=== PATIENT | male | born 1990 | race Caucasian/White ===

== ENCOUNTER 2018-09-10 16:47 | Emergency (ER) | payer OTHER ==
[~2018-09-10] VITALS: Ht 182.9 cm; Wt 84.1 kg
[2018-09-10] MEDS ORDERED: MIRT30TA3 PO (16:53)
[2018-09-10] MEDS ORDERED: XANA0.5T PO (17:28)
[2018-09-10 17:52] VITALS: BP 138/78
== END 2018-09-10 17:54 | disposition home or self-care (01) ==
LOC: M ED 16:47
DX: F43.0 Acute stress reaction (principal); F41.1 Generalized anxiety disorder; F33.9 Major depressive disorder, recurrent, unspecified; Z79.899 Other long term (current) drug therapy; Z88.8 Allergy status to other drugs, medicaments and biological substances; F17.210 Nicotine dependence, cigarettes, uncomplicated

== ENCOUNTER 2018-09-21 16:33 | Inpatient (IN) | payer OTHER ==
[~2018-09-21] VITALS: Ht 182.9 cm; Wt 82.1 kg
[~2018-09-21 16:33] MED LIST: MIRT30TA3 PO; XANA0.5T PO
[2018-09-21 17:31] LABS: HEMATOCRIT 47.6 % (42.0-52.0); HEMOGLOBIN 16.1 g/dl (13.5-17.5); MEAN CORPUSCULAR HEMOGLOBIN 32.5 pg (27.0-33.0); MEAN CORPUSCULAR HGB CONC 33.8 g/dl (32.0-36.5); MEAN CORPUSCULAR VOLUME 96.2 fl (80.0-96.0); PLATELET COUNT, AUTOMATED 290 10^3/uL (150-450); RED BLOOD COUNT 4.95 10^6/uL (4.30-6.10); WHITE BLOOD COUNT 11.7 10^3/uL (4.0-10.0)
[2018-09-21 17:57] LABS: AMPHETAMINES LEVEL URINE NEGATIVE (NEGATIVE); BARBITURATES URINE NEGATIVE (NEGATIVE); BENZODIAZEPINES URINE NEGATIVE (NEGATIVE); CANNABINOIDS URINE POSITIVE (NEGATIVE); COCAINE METABOLITE URINE NEGATIVE (NEGATIVE); METHADONE URINE NEGATIVE (NEGATIVE); OPIATES URINE NEGATIVE (NEGATIVE); PHENCYCLIDINE URINE NEGATIVE (NEGATIVE)
[2018-09-21 18:07] LABS: ACETAMINOPHEN LEVEL < 2.0 UG/ML (10.0-30.0); ALBUMIN 4.4 GM/DL (3.2-5.2); ALT/SGPT 27 U/L (12-78); BILIRUBIN,DIRECT 0.1 MG/DL (0.0-0.2); BILIRUBIN,TOTAL 0.3 MG/DL (0.2-1.0); BLOOD UREA NITROGEN 10 MG/DL (7-18); CALCIUM LEVEL 9.4 MG/DL (8.5-10.1); CARBON DIOXIDE LEVEL 28 MEQ/L (21-32); CHLORIDE LEVEL 104 MEQ/L (98-107); CREATININE FOR GFR 1.01 MG/DL (0.70-1.30); GLOMERULAR FILTRATION RATE > 60.0 (>60); GLUCOSE, FASTING 79 MG/DL (70-100); POTASSIUM SERUM 4.2 MEQ/L (3.5-5.1); SALICYLATE LEVEL 1.8 MG/DL (5.0-30.0); SODIUM LEVEL 140 MEQ/L (136-145); TOTAL PROTEIN 7.3 GM/DL (6.4-8.2)
[2018-09-21 18:08] LABS: ETHYL ALCOHOL (ETHANOL) < 0.003 % (0.000-0.010)
[2018-09-21] MEDS ORDERED: BENA25CA4 PO (19:48)
[2018-09-21] MEDS ORDERED: XANA0.5T PO (19:48)
[2018-09-21] MEDS ORDERED: EXCETAB80 PO (19:48)
[2018-09-21] MEDS ORDERED: traZODone 50 MG TAB PO PRN (20:00)
[2018-09-21] MEDS ORDERED: MAALOX 30 ML SUSP *UDC PO PRN (20:00)
[2018-09-21] MEDS ORDERED: MOM 30ML SUSPENSION UDC PO PRN (20:00)
[2018-09-21 20:33] VITALS: BP 146/87
[2018-09-21] MEDS: LORazepam 1 MG TAB PO PRN (22:01)
[2018-09-22 06:58] VITALS: BP 128/66
[2018-09-22] MEDS: LORazepam 1 MG TAB PO PRN (08:08)
[2018-09-22] MEDS: NICOTINE 21MG/24HR 1 EA TRANSDERMAL TD SCH (08:08)
--- NOTE | 2018-09-22 09:25 | HPEPDOC ---
[facility] Medical History & Physical Date of Admission Sep 21, 2018 History and Physical PCP: Dr Husain ATTENDING: Dr. Ishmael Pringle HPI: 28yoM admitted to [facility] for bipolar disorder, being medically examined today. No acute medical complaints today. Denies any fevers, chills, weakness, fatigue, CASTANEDA, CP, SOB, cough, palpitations, abdominal pain, N/V/D or changes in bowel or bladder habits. PMHx: Anxiety Depression Bipolar disorder History of SI Migraine headache PSHX: Left orchiectomy/left testicular torsion SOCHX: Resides in: [facility], recently moved from [place] Marital Status: Single Kids: None Employment: Unemployed Tobacco use: One pack per day ETOH: A few drinks per month Illicit Drugs: Marijuana in the past IV Drug Use: Denies Tattoos done unprofessionally: Denies FAMHX: Mother: Alive, depression Father: Alive, anxiety, diabetes, dyslipidemia Siblings: 2 brothers, one sister Alive, well Children: None Unexpected deaths due to medical reasons: None. ROS: As noted in HPI, otherwise 11pt ROS of systems reviewed and unremarkable. PE: GEN: 28 yo M, appears stated age. Well-nourished, well developed. No acute distress. Alert and oriented x 3. Pleasant, interactive. HEENT: Normocephalic, atraumatic. Pupils are equal, round, and reactive to light. Extraocular movements are intact. No nystagmus appreciated. Sclera are nonicteric. Conjunctiva without injection. Nose midline. Nasal turbinates without bogginess. EACs both patent BL. TMs both visualized and chau with good cone of light, no bulging or erythema. No facial asymmetry. Moist mucous membranes. Dentition fair. Pharynx pink and moist, no cobblestoning. Neck supple, trachea midline. No lymphadenopathy or thyromegaly appreciated. CHEST: Regular rate and rhythm, +S1, +S2 LUNGS: Clear to auscultation bilaterally. No wheezes, rales, or rhonchi. Breathing appears symmetric and easy. Patient is speaking in full sentences. No accessory muscle use. ABD: Round, soft, non-tender, non-distended. +Bowel sounds throughout. No rebou nd or guarding. No costovertebral angle tenderness. EXT: Pulses 2+ bilaterally dorsalis pedis and radial. No lower extremity edema appreciated. SKIN: [place], dry, warm. Capillary refill <2sec. No rashes. NEURO: Alert and oriented x 3. Cranial nerves III-XII are intact. No focal deficits appreciated. EKG: Pending A&P: 28yoM admitted to [facility] for bipolar disorder 1. Psych. Plan per Psychiatry. Obtain baseline EKG to assure the safety of psychiatric medications as they can prolong the QT interval. 2. Nicotine dependence. Patch available. 3. Migraine CASTANEDA. Continue Tylenol as needed. 4. Follow up with PCP on discharge. 5. Staff member Dioni present throughout exam. Vital Signs Vital Signs Date Time Temp Pulse Resp B/P (MAP) Pulse Ox O2 Delivery O2 Flow Rate FiO2 09/22/18 06:58 98.1 59 16 128/66 (86) 09/21/18 20:33 97 Room Air Laboratory Data Labs 24H Laboratory Tests 2 09/21/18 17:12: Nucleated Red Blood Cells % (auto) 0.0, Anion Gap 8, Glomerular Filtration Rate > 60.0, Calcium Level 9.4, Aspartate Amino Transf (AST/SGOT) 17, Alanine Aminotransferase (ALT/SGPT) 27, Alkaline Phosphatase 95, Total Bilirubin 0.3, Direct Bilirubin 0.1, Total Protein 7.3, Albumin 4.4, Albumin/Globulin Ratio 1.52, Thyroid Stimulating Hormone (TSH) 1.220, Salicylates Level 1.8L, Urine Amp hetamines Screen NEGATIVE, Urine Benzodiazepines Screen NEGATIVE, Urine Opiates Screen NEGATIVE, Urine Methadone Screen NEGATIVE, Acetaminophen Level < 2.0L, Urine Barbiturates Screen NEGATIVE, Urine Phencyclidine Screen NEGATIVE, Urine Cocaine Metabolite Screen NEGATIVE, Urine Cannabinoids Screen POSITIVEH, Ethyl Alcohol Level < 0.003 CBC/BMP Laboratory Tests 09/21/18 17:12 Red Blood Count 4.95, Mean Corpuscular Volume 96.2 H, Mean Corpuscular Hemoglobin 32.5, Mean Corpuscular Hemoglobin Concent 33.8, Red Cell Distribution Width 13.3 Home Medications Scheduled Mirtazapine (Mirtazapine) 30 Mg Tab, 30 MG PO DAILY Scheduled PRN Acetaminophen/Aspirin/Caffein (Excedrin Migraine 250-250-65 mg) 1 Tab Tab, 1 TAB PO Q12H PRN for MIGRAINE Alprazolam (Xanax) 0.5 Mg Tab, 0.5 MG PO TID PRN for ANXIETY Diphenhydramine HCl (Benadryl Allergy) 25 Mg Cap, 25 MG PO DAILY PRN for ALLERGY SYMPTOMS Allergies Coded Allergies: No Known Drug Allergy (Verified Allergy, Unknown, 09/21/18) Trazodone (Verified Adverse Reaction, Intermediate, PRIAPISM, 09/21/18) Years ago Pt experienced Erection, which lasted several hours. Mercedes Fontanez Sep 22, 2018 09:25
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
[2018-09-22] MEDS: clonazePAM 0.5 MG TAB PO PRN ×2 (15:39→20:34)
[2018-09-22] MEDS: ACETAMINOPHEN TAB 650MG DOSE (2X325MG) PO PRN (15:40)
[2018-09-22 18:36] VITALS: BP 138/90
[2018-09-22] MEDS: zolPIDEM TARTRATE 10MG TAB PO PRN (22:37)
[2018-09-23 06:39] VITALS: BP 119/60
[2018-09-23] MEDS: PILL CRUSHER/CUTTER 1 EACH XX PRN (08:07)
[2018-09-23 08:10] LABS: HEMATOCRIT 47.3 % (42.0-52.0); HEMOGLOBIN 16.1 g/dl (13.5-17.5); MEAN CORPUSCULAR HEMOGLOBIN 32.2 pg (27.0-33.0); MEAN CORPUSCULAR VOLUME 94.6 fl (80.0-96.0); PLATELET COUNT, AUTOMATED 285 10^3/uL (150-450); WHITE BLOOD COUNT 10.5 10^3/uL (4.0-10.0)
[2018-09-23] MEDS: clonazePAM 0.5 MG TAB PO PRN ×2 (08:10→20:08)
[2018-09-23] MEDS: NICOTINE 21MG/24HR 1 EA TRANSDERMAL TD SCH (08:10)
--- NOTE | 2018-09-23 17:24 | ECGEPIP ---
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
[2018-09-23 18:00] VITALS: BP 144/72
[2018-09-23] MEDS: zolPIDEM TARTRATE 10MG TAB PO PRN (21:42)
--- NOTE | 2018-09-23 21:58 | MHIPNPDOC ---
[facility] [place] Progress Note DATE OF SERVICE: 09/23/18 HISTORY: As per ED report: "pt states, "I've been down lately and been thinking about killing myself." Pt reports a hx of Bi-polar Disorder, admits his symptoms have spiraled downward for the past week. States he's been feeling suicidal for 2 days with plan to jump off a bridge. Suicidal stressors include current living situation. He reports receiving a 3 day eviction notice on Thursday and states there is no way he can search for an apt in time. DSS is currently helping, but also identifies financial issues and being unemployed as other suicidal stressors. Pt states, "I just need to be admitted to mental health because I want to kill myself." Pt moved here from [place] Jul, 2018 to be around family. States he wasdiagnosed with Bi-polar Disorder in [place] with one mental health admission 3 years ago. He's been seeking his PCP for medication, however still waiting to see a Psychiatrist. Pt continues to voice SI with plan to jump off a bridge." VITAL SIGNS: See below. NEW TEST RESULTS: . CURRENT MEDICATIONS: See below. MENTAL STATUS EXAMINATION: General Appearance: well groomed, appears stated age, hospital scubs/clothing Build: average Demeanor: average Eye Contact: average Activity: average Behavior: cooperative Speech: clear, spontaneous, reg/rate,rhythm,volume Mood: depressed, anxious Affect: constricted, appropriate, congruent, anxious Thought Process: logical/linear Thought Content (Delusions): grandiose (not at this time) Thought Content (Other): none reported Thought Content (Aggressive): none reported Perception (Hallucinations): auditory, visual Perception (Other): illusions Cognition (Impairment of): none reported Cognition(Intelligence Est.): average Oriented: Awake, Alert, Oriented times three Insight: fair Judgment: Poor Psychosis: Denies Diagnoses 1. Bipolar disorder, mixed episode 2. JULIETA 3. Marihuana use disorder 4. R/O marihuana induced mood disorder ASSESSMENT: Patient continues to report anxiety and he looks anxious. He said he slept well but he had a nightmare and in his dream, he had cancer. He woke up feeling very anxious and when he was having breakfast, he was told that they needed to draw lood from him because his WBC was slightly elevated so, he felt as if he was going to have a panic attack because he almost thought that his dream was a bad omen. He was able to control his panic attack but later in the afternoon another patient ws agitated and that made him feel very anxious, he was on edge and almost developed a panic attack. MANAGEMENT PLAN: Will continue with the same treatment plan TIME SPENT: 25 minutes. Vital Signs Vital Signs Date Time Temp Pulse Resp B/P (MAP) Pulse Ox O2 Delivery O2 Flow Rate FiO2 09/23/18 18:00 99.3 94 20 144/72 (96) 09/23/18 06:39 Room Air 09/21/18 20:33 97 Laboratory Data 24H Labs Laboratory Tests 2 09/23/18 07:38: Nucleated Red Blood Cells % (auto) 0.0 CBC/BMP Laboratory Tests 09/23/18 07:38 Red Blood Count 5.00, Mean Corpuscular Volume 94.6, Mean Corpuscular Hemoglobin 32.2, Mean Corpuscular Hemoglobin Concent 34.0, Red Cell Distribution Width 13.1 Current Medications Current Medications Acetaminophen (Tylenol Tab) 650 mg Q6HP PRN PO HEADACHE or DISCOMFORT Last administered on 09/22/18at 15:40; Start 09/21/18 at 20:00 Al Hydrox/Mg Hydrox/Simethicone (Mylanta) 30 ml Q4HP PRN PO HEAR TBURN/INDIGESTION; Start 09/21/18 at 20:00 Aripiprazole (AbiLIFY) 2.5 mg BID PO Last administered on 09/23/18at 20:08; Start 09/22/18 at 21:00 Clonazepam (KlonoPIN) 0.5 mg TID PRN PO ANXIETY/AGITATION Last administered on 09/23/18at 20:08; Start 09/22/18 at 14:15 Home Med (Med Rec Complete!) ASDIRECTED XX ; Start 09/21/18 at 20:00; Stop 09/21/18 at 20:00; Status DC Lorazepam (Ativan) 1 mg Q4HP PRN PO ANXIETY/AGITATION Last administered on 09/22/18at 08:08; Start 09/21/18 at 20:00; Stop 09/22/18 at 14:18; Status DC Magnesium Hydroxide (Milk Of Magnesia) 30 ml DAILYPRN PRN PO CONSTIPATION; Start 1/22/19 at 20:00 Nicotine (Nicoderm Cq 21mg) 1 patch DAILY TD Last administered on 09/23/18at 08:10; Start 09/22/18 at 09:00 Trazodone HCl (Desyrel) 50 mg QHSP PRN PO INSOMNIA; Start 09/21/18 at 20:00; Status Cancel Zolpidem Tartrate (Ambien) 10 mg QHSP PRN PO INSOMNIA Last administered on 09/23/18at 21:42; Start 09/21/18 at 22:45 Allergies Coded Allergies: No Known Drug Allergy (Verified Allergy, Unknown, 09/21/18) Trazodone (Verified Adverse Reaction, Intermediate, PRIAPISM, 09/21/18) Years ago Pt experienced Erection, which lasted several hours. MARTY GAUTAM MD Sep 23, 2018 21:58
[2018-09-24] MEDS: clonazePAM 0.5 MG TAB PO PRN ×3 (06:29→20:37)
[2018-09-24 07:00] VITALS: BP 119/60
[2018-09-24] MEDS: NICOTINE 21MG/24HR 1 EA TRANSDERMAL TD SCH (08:05)
[2018-09-24] MEDS: ACETAMINOPHEN TAB 650MG DOSE (2X325MG) PO PRN (13:38)
--- NOTE | 2018-09-24 17:49 | MHIPNPDOC ---
[facility] Progress Note Progress Note DATE OF SERVICE: 09/24/18 HISTORY: As per ED report: "pt states, "I've been down lately and been thinking about killing myself." Pt reports a hx of Bi-polar Disorder, admits his symptoms have spiraled downward for the past week. States he's been feeling suicidal for 2 days with plan to jump off a bridge. Suicidal stressors include current living situation. He reports receiving a 3 day eviction notice on Thursday and states there is no way he can search for an apt in time. DSS is currently helping, but also identifies financial issues and being unemployed as other suicidal stressors. Pt states, "I just need to be admitted to mental health because I want to kill myself." Pt moved here from [place] Jul, 2018 to be around family. States he wasdiagnosed with Bi-polar Disorder in [place] with one mental health admission 3 years ago. He's been seeking his PCP for medication, however still waiting to see a Psychiatrist. Pt continues to voice SI with plan to jump off a bridge." VITAL SIGNS: See below. NEW TEST RESULTS: . CURRENT MEDICATIONS: See below. MENTAL STATUS EXAMINATION: General Appearance: well groomed, appears stated age, hospital scubs/clothing Build: average Demeanor: average Eye Contact: average Activity: average Behavior: cooperative Speech: clear, spontaneous, reg/rate,rhythm,volume Mood: depressed, anxious Affect: constricted, appropriate, congruent, anxious Thought Process: logical/linear Thought Content (Delusions): grandiose (not at this time) Thought Content (Other): none reported Thought Content (Aggressive): none reported Perception (Hallucinations): auditory, visual Perception (Other): illusions Cognition (Impairment of): none reported Cognition(Intelligence Est.): average Oriented: Awake, Alert, Oriented times three Insight: fair Judgment: Poor Psychosis: Denies Diagnoses 1. Bipolar disorder, mixed episode 2. JULIETA 3. Marihuana use disorder 4. R/O marihuana induced mood disorder ASSESSMENT: Patient's mental status has not changed much since yesterday but he says he almost had a panic attack when this morning he was approached by another patient who was very angry at him because he thought Mr. Caceres was spying on him, trying to listen to his conversations in the hallway, when the other patient was using the phone. Mr. Caceres said he was not doing such a thing and later on the patient apologized to him. Mr. Caceres said that "I slept like a baby last night", he says he is feeling better and he is hopeful about going to [facility]. He is thankful to me and all the staff, he said, because all of us were paying attention to him and were being helpful, but he fears that when he goes back to the real world, he will be anxious again, because some of the people outside, in the real world, won't be like staff at [facility]. MANAGEMENT PLAN: Increased Abilify to 5 mgs PO BID TIME SPENT: 25 minutes. Vital Signs Vital Signs Date Time Temp Pulse Resp B/P (MAP) Pulse Ox O2 Delivery O2 Flow Rate FiO2 09/24/18 07:00 97.6 72 16 119/60 (79) 09/23/18 06:39 Room Air 09/21/18 20:33 97 Current Medications Current Medications Acetaminophen (Tylenol Tab) 650 mg Q6HP PRN PO HEADACHE or DISCOMFORT Last administered on 09/24/18at 13:38; Start 09/21/18 at 20:00 Al Hydrox/Mg Hydrox/Simethicone (Mylanta) 30 ml Q4HP PRN PO HEARTBURN/INDIGEST ION; Start 09/21/18 at 20:00 Aripiprazole (AbiLIFY) 2.5 mg BID PO Last administered on 09/24/18at 08:45; Start 09/22/18 at 21:00; Stop 09/24/18 at 13:31; Status DC Aripiprazole (AbiLIFY) 5 mg BID PO ; Start 09/24/18 at 21:00 Clonazepam (KlonoPIN) 0.5 mg TID PRN PO ANXIETY/AGITATION Last administered on 09/24/18at 13:37; Start 09/22/18 at 14:15 Home Med (Med Rec Complete!) ASDIRECTED XX ; Start 09/21/18 at 20:00; Stop 09/21/18 at 20:00; Status DC Lorazepam (Ativan) 1 mg Q4HP PRN PO ANXIETY/AGITATION Last administered on 09/22/18at 08:08; Start 09/21/18 at 20:00; Stop 09/22/18 at 14:18; Status DC Magnesium Hydroxide (Milk Of Magnesia) 30 ml DAILYPRN PRN PO CONSTIPATION; Start 09/21/18 at 20:00 Nicotine (Nicoderm Cq 21mg) 1 patch DAILY TD Last administered on 09/24/18at 08:05; Start 09/22/18 at 09:00 Trazodone HCl (Desyrel) 50 mg QHSP PRN PO INSOMNIA; Start 09/21/18 at 20:00; Status Cancel Zolpidem Tartrate (Ambien) 10 mg QHSP PRN PO INSOMNIA Last administered on 09/23/18at 21:42; Start 09/21/18 at 22:45 Allergies Coded Allergies: No Known Drug Allergy (Verified Allergy, Unknown, 09/21/18) Trazodone (Verified Adverse Reaction, Intermediate, PRIAPISM, 09/21/18) Years ago Pt experienced Erection, which lasted several hours. MARTY GAUTAM MD Sep 24, 2018 17:49
[2018-09-24 18:11] VITALS: BP 130/60
[2018-09-24] MEDS: zolPIDEM TARTRATE 10MG TAB PO PRN (22:46)
[2018-09-25 06:08] VITALS: BP 129/63
[2018-09-25] MEDS: NICOTINE 21MG/24HR 1 EA TRANSDERMAL TD SCH (08:12)
[2018-09-25] MEDS: ACETAMINOPHEN TAB 650MG DOSE (2X325MG) PO PRN (08:43)
[2018-09-25] MEDS: BENZOCAINE 10% 9GM TUBE (ANBESOL) MT SCH ×4 (09:00→21:33)
[2018-09-25] MEDS: clonazePAM 0.5 MG TAB PO PRN ×3 (10:29→21:32)
[2018-09-25] MEDS ORDERED: IBUPROFEN 400 MG TAB PO PRN (12:15)
[2018-09-25] MEDS: CitaloPRAM (CeleXA) 10 MG TABLET PO SCH (16:08)
[2018-09-25] MEDS: IBUPROFEN 600 MG TAB PO PRN (16:09)
[2018-09-25 18:00] VITALS: BP 136/80
--- NOTE | 2018-09-25 21:14 | MHIPNPDOC ---
[facility] Progress Note Progress Note DATE OF SERVICE: 09/25/18 HISTORY: As per ED report: "pt states, "I've been down lately and been thinking about killing myself." Pt reports a hx of Bi-polar Disorder, admits his symptoms have spiraled downward for the past week. States he's been feeling suicidal for 2 days with plan to jump off a bridge. Suicidal stressors include current living situation. He reports receiving a 3 day eviction notice on Thursday and states there is no way he can search for an apt in time. DSS is currently helping, but also identifies financial issues and being unemployed as other suicidal stressors. Pt states, "I just need to be admitted to mental health because I want to kill myself." Pt moved here from [place] Jul, 2018 to be around family. States he wasdiagnosed with Bi-polar Disorder in [place] with one mental health admission 3 years ago. He's been seeking his PCP for medication, however still waiting to see a Psychiatrist. Pt continues to voice SI with plan to jump off a bridge." VITAL SIGNS: See below. NEW TEST RESULTS: . CURRENT MEDICATIONS: See below. MENTAL STATUS EXAMINATION: General Appearance: well groomed, appears stated age, hospital scubs/clothing Build: average Demeanor: Depressed, pleasant, cooperative Eye Contact: average Activity: Slow, seems to be calm but actually he is anxious Behavior: cooperative Speech: clear, spontaneous, reg/rate,rhythm,volume Mood: depressed, anxious Affect: constricted, appropriate, congruent, anxious Thought Process: logical/linear Thought Content (Delusions): grandiose (not at this time) Thought Content (Other): none reported Thought Content (Aggressive): none reported Perception (Hallucinations): auditory, visual Perception (Other): illusions Cognition (Impairment of): none reported Cognition(Intelligence Est.): average Oriented: Awake, Alert, Oriented times three Insight: fair Judgment: Poor Psychosis: Denies Diagnoses 1. Bipolar disorder, mixed episode 2. JULIETA 3. Marihuana use disorder 4. R/O marihuana induced mood disorder ASSESSMENT: Patient will be started on Celexa 10 mg by mouth daily and will continue on Abilify 5 mg by mouth twice a day. Patient reports feeling very depressed today mostly he says because he has been having dental pain despite the fact that he is taking ibuprofen and has been using Orajel. Ibuprofen will be increased to 600 mg by mouth every 6 hours when necessary for pain, he will be started on an antidepressant, Celexa 10 mg by mouth daily and the dose of Abilify will remain the same MANAGEMENT PLAN: Celexa 10 mg by mouth daily, continue with Abilify 5 mg by mouth twice a day and ibuprofen 600 mg by mouth every 6 hours when necessary for pain TIME SPENT: 25 minutes. Vital Signs Vital Signs Date Time Temp Pulse Resp B/P (MAP) Pulse Ox O2 Delivery O2 Flow Rate FiO2 09/25/18 18:00 98.8 94 16 136/80 (98) 09/23/18 06:39 Room Air 09/21/18 20:33 97 Current Medications Current Medications Acetaminophen (Tylenol Tab) 650 mg Q6HP PRN PO HEADACHE or DISCOMFORT Last administered on 09/25/18at 08:43; Start 09/21/18 at 20:00 Al Hydrox/Mg Hydrox/Simethicone (Mylanta) 30 ml Q4HP PRN PO HEARTBURN/INDIGESTION; Start 09/21/18 at 20:00 Aripiprazole (AbiLIFY) 2.5 mg BID PO Last administered on 09/24/18at 08:45; Start 09/22/18 at 21:00; Stop 09/24/18 at 13:31; Status DC Aripiprazole (AbiLIFY) 5 mg BID PO Last administered on 09/25/18at 08:11; Start 09/24/18 at 21:00 Benzocaine (Anbesol Gel) 1 dose TID MT Last administered on 09/25/18at 16:46; Start 09/25/18 at 09:00 Citalopram Hydrobromide (CeleXA) 10 mg DAILY PO Last administered on 09/25/18at 16:08; Start 09/25/18 at 09:00 Clonazepam (KlonoPIN) 0.5 mg TID PRN PO ANXIETY/AGITATION Last administered on 09/25/18at 16:56; Start 09/22/18 at 14:15 Home Med (Med Rec Complete!) ASDIRECTED XX ; Start 09/21/18 at 20:00; Stop at 20:00; Status DC Ibuprofen (Advil) 400 mg Q6HP PRN PO PAIN; Start 09/25/18 at 12:15; Stop 09/25/18 at 15:51; Status DC Ibuprofen (Advil) 600 mg Q6HP PRN PO PAIN Last administered on 09/25/18at 16:09; Start 09/25/18 at 16:00 Lorazepam (Ativan) 1 mg Q4HP PRN PO ANXIETY/AGITATION Last administered on 09/22/18at 08:08; Start 09/21/18 at 20:00; Stop 09/22/18 at 14:18; Status DC Magnesium Hydroxide (Milk Of Magnesia) 30 ml DAILYPRN PRN PO CONSTIPATION; Start 09/21/18 at 20:00 Nicotine (Nicoderm Cq 21mg) 1 patch DAILY TD Last administered on 09/25/18at 08:12; Start 09/22/18 at 09:00 Trazodone HCl (Desyrel) 50 mg QHSP PRN PO INSOMNIA; Start 09/21/18 at 20:00; Status Cancel Zolpidem Tartrate (Ambien) 10 mg QHSP PRN PO INSOMNIA Last administered on at 22:46; Start 09/21/18 at 22:45 Allergies Coded Allergies: No Known Drug Allergy (Verified Allergy, Unknown, 09/21/18) Trazodone (Verified Adverse Reaction, Intermediate, PRIAPISM, 09/21/18) Years ago Pt experienced Erection, which lasted several hours. MARTY GAUTAM MD Sep 25, 2018 21:14
[2018-09-25] MEDS: zolPIDEM TARTRATE 10MG TAB PO PRN (23:01)
[2018-09-26 06:26] VITALS: BP 135/83
[2018-09-26] MEDS: BENZOCAINE 10% 9GM TUBE (ANBESOL) MT SCH ×3 (08:12→20:25)
[2018-09-26] MEDS: CitaloPRAM (CeleXA) 10 MG TABLET PO SCH (08:12)
[2018-09-26] MEDS: NICOTINE 21MG/24HR 1 EA TRANSDERMAL TD SCH (08:12)
[2018-09-26] MEDS: clonazePAM 0.5 MG TAB PO PRN ×2 (10:39→20:25)
[2018-09-26] MEDS: IBUPROFEN 600 MG TAB PO PRN ×2 (10:39→20:25)
[2018-09-26 18:00] VITALS: BP 134/79
[2018-09-26] MEDS: zolPIDEM TARTRATE 10MG TAB PO PRN (21:29)
[2018-09-27] MEDS: clonazePAM 0.5 MG TAB PO PRN ×2 (06:20→19:25)
[2018-09-27 06:34] VITALS: BP 123/60
[2018-09-27] MEDS: BENZOCAINE 10% 9GM TUBE (ANBESOL) MT SCH ×3 (08:33→20:52)
[2018-09-27] MEDS: CitaloPRAM (CeleXA) 10 MG TABLET PO SCH (08:34)
[2018-09-27] MEDS: NICOTINE 21MG/24HR 1 EA TRANSDERMAL TD SCH (08:35)
--- NOTE | 2018-09-27 11:05 | MHIPNPDOC ---
[facility] Progress Note Progress Note DATE OF SERVICE: 09/27/18 HISTORY: As per ED report: "pt states, "I've been down lately and been thinking about killing myself." Pt reports a hx of Bi-polar Disorder, admits his symptoms have spiraled downward for the past week. States he's been feeling suicidal for 2 days with plan to jump off a bridge. Suicidal stressors include current living situation. He reports receiving a 3 day eviction notice on Thursday and states there is no way he can search for an apt in time. DSS is currently helping, but also identifies financial issues and being unemployed as other suicidal stressors. Pt states, "just need to be admitted to mental health because I want to kill myself." Pt moved here from [place] Jul, 2018 to be around family. States he wasdiagnosed with Bi-polar Disorder in [place] with one mental health admission 3 years ago. He's been seeking his PCP for medication, however still waiting to see a Psychiatrist. Pt continues to voice SI with plan to jump off a bridge." VITAL SIGNS: See below. NEW TEST RESULTS: See below CURRENT MEDICATIONS: See below. MENTAL STATUS EXAMINATION: General Appearance: well groomed, appears stated age, hospital scubs/clothing Build: average Demeanor: Depressed, pleasant, cooperative Eye Contact: average Activity: Slow, seems to be calm but actually he is anxious Behavior: cooperative Speech: clear, spontaneous, reg/rate,rhythm,volume Mood: depressed, anxious Affect: constricted, appropriate, congruent, anxious Thought Process: logical/linear Thought Content (Delusions): grandiose (not at this time) Thought Content (Other): none reported Thought Content (Aggressive): none reported Perception (Hallucinations): auditory, visual Perception (Other): illusions Cognition (Impairment of): none reported Cognition(Intelligence Est.): average Oriented: Awake, Alert, Oriented times three Insight: fair Judgment: Poor Psychosis: Denies DIAGNOSIS 1. Bipolar disorder, mixed episode 2. JULIETA 3. Marihuana use disorder 4. R/O marihuana induced mood disorder ASSESSMENT: Patient states that he is feeling much better. His depressive symptoms have improved since Thursday and he has been able to fall asleep at night. He is hopeful that he might be able to find alternative housing options upon discharge. He smiled during the interview. His tooth pain is being adequately managed with the ibuprofen. He has been taking his Celexa and Abilify. He states that he has felt somewhat tired since Celexa was added to his treatment regime. He denies thoughts of wanting to harm himself or others. MANAGEMENT PLAN: Celexa 10 mg by mouth daily, continue with Abilify 5 mg by mouth twice a day and ibuprofen 600 mg by mouth every 6 hours when necessary for pain Continue to explore housing options for the patient upon discharge. TIME SPENT: 15 minutes. Vital Signs Vital Signs Date Time Temp Pulse Resp B/P (MAP) Pulse Ox O2 Delivery O2 Flow Rate FiO2 09/27/18 06:34 98.3 66 16 123/60 (81) 09/26/18 18:00 Room Air 09/21/18 20:33 97 Current Medications Current Medications Acetaminophen (Tylenol Tab) 650 mg Q6HP PRN PO HEADACHE or DISCOMFORT Last administered on 09/25/18at 08:43; Start 09/21/18 at 20:00 Al Hydrox/Mg Hydrox/Simethicone (Mylanta) 30 ml Q4HP PRN PO HEARTBURN/INDIGESTION; Start 09/21/18 at 20:00 Aripiprazole (AbiLIFY) 2.5 mg BID PO Last administered on 09/24/18at 08:45; Start 09/22/18 at 21:00; Stop 09/24/18 at 13:31; Status DC Aripiprazole (AbiLIFY) 5 mg BID PO Last administered on 09/27/18at 08:34; Start 09/24/18 at 21:00 Benzocaine (Anbesol Gel) 1 dose TID MT Last administered on 09/26/18at 20:25; Start 09/25/18 at 09:00 Citalopram Hydrobromide (CeleXA) 10 mg DAILY PO Last administered on 09/27/18at 08:34; Start 09/25/18 at 09:00 Clonazepam (KlonoPIN) 0.5 mg TID PRN PO ANXIETY/AGITATION Last administered on 09/27/18at 06:20; Start 09/22/18 at 14:15 Home Med (Med Rec Complete!) ASDIRECTED XX ; Start 09/21/18 at 20:00; Stop 09/21/18 at 20:00; Status DC Ibuprofen (Advil) 400 mg Q6HP PRN PO PAIN; Start 09/25/18 at 12:15; Stop 09/25/18 at 15:51; Status DC Ibuprofen (Advil) 600 mg Q6HP PRN PO PAIN Last administered on 09/26/18at 20:25; Start 09/25/18 at 16:00 Lorazepam (Ativan) 1 mg Q4HP PRN PO ANXIETY/AGITATION Last administered on 09/22/18at 08:08; Start 09/21/18 at 20:00; Stop 09/22/18 at 14:18; Status DC Magnesium Hydroxide (Milk Of Magnesia) 30 ml DAILYPRN PRN PO CONSTIPATION; Start 09/21/18 at 20:00 Nicotine (Nicoderm Cq 21mg) 1 patch DAILY TD Last administered on 09/27/18at 08:35; Start 09/22/18 at 09:00 Trazodone HCl (Desyrel) 50 mg QHSP PRN PO INSOMNIA; Start 09/21/18 at 20:00; Status Cancel Zolpidem Tartrate (Ambien) 10 mg QHSP PRN PO INSOMNIA Last administered on 09/26/18at 21:29; Start 09/21/18 at 22:45 Allergies Coded Allergies: No Known Drug Allergy (Verified Allergy, Unknown, 09/21/18) Trazodone (Verified Adverse Reaction, Intermediate, PRIAPISM, 09/21/18) Years ago Pt experienced Erection, which lasted several hours. GME ATTESTATION GME ATTESTATION My faculty preceptor for this patient encounter was physically present during the encounter and was fully available. All aspects of the patient interview, examination, medical decision making process, and medical care plan development were reviewed and approved by the faculty preceptor. The faculty preceptor is aware and concurs with the plan as stated in the body of this note and will attest to such by his/her cosignature. BRAYDON ALFARO DO Sep 27, 2018 11:05
[2018-09-27 18:26] VITALS: BP 140/65
[2018-09-27] MEDS: IBUPROFEN 600 MG TAB PO PRN (19:25)
[2018-09-27] MEDS: zolPIDEM TARTRATE 10MG TAB PO PRN (22:57)
[2018-09-28 06:45] VITALS: BP 116/62
[2018-09-28] MEDS: BENZOCAINE 10% 9GM TUBE (ANBESOL) MT SCH ×3 (08:08→22:10)
[2018-09-28] MEDS: NICOTINE 21MG/24HR 1 EA TRANSDERMAL TD SCH (08:11)
[2018-09-28] MEDS: CitaloPRAM (CeleXA) 10 MG TABLET PO SCH (08:11)
[2018-09-28] MEDS: clonazePAM 0.5 MG TAB PO PRN ×3 (08:11→21:34)
--- NOTE | 2018-09-28 11:53 | MHIPNPDOC ---
[facility] Progress Note Progress Note DATE OF SERVICE: 09/28/18 HISTORY: As per ED report: "pt states, "I've been down lately and been thinking about killing myself." Pt reports a hx of Bi-polar Disorder, admits his symptoms have spiraled downward for the past week. States he's been feeling suicidal for 2 days with plan to jump off a bridge. Suicidal stressors include current living situation. He reports receiving a 3 day eviction notice on Thursday and states there is no way he can search for an apt in time. DSS is currently helping, but also identifies financial issues and being unemployed as other suicidal stressors. Pt states, "just need to be admitted to mental health because I want to kill myself." Pt moved here from [place] Jul, 2018 to be around family. States he wasdiagnosed with Bi-polar Disorder in [place] with one mental health admission 3 years ago. He's been seeking his PCP for medication, however still waiting to see a Psychiatrist. Pt continues to voice SI with plan to jump off a bridge." VITAL SIGNS: See below. NEW TEST RESULTS: See below CURRENT MEDICATIONS: See below. MENTAL STATUS EXAMINATION: General Appearance: well groomed, appears stated age, hospital scubs/clothing Build: average Demeanor: pleasant, cooperative, reports depression, shows signs of improvement Eye Contact: average Activity: Slow, seems to be calm but actually he is anxious Behavior: cooperative Speech: clear, spontaneous, reg/rate,rhythm,volume Mood: depressed, anxious Affect: constricted, appropriate, congruent, anxious Thought Process: logical/linear Thought Content (Delusions): grandiose (not at this time) Thought Content (Other): none reported Thought Content (Aggressive): none reported Perception (Hallucinations): auditory, visual Perception (Other): illusions Cognition (Impairment of): none reported Cognition(Intelligence Est.): average Oriented: Awake, Alert, Oriented times three Insight: fair Judgment: Poor Psychosis: Denies DIAGNOSIS 1. Bipolar disorder, mixed episode 2. JULIETA 3. Marihuana use disorder 4. R/O marihuana induced mood disorder ASSESSMENT: Angelito was interviewed today in his room. He appears to be in better spirits than yesterday (which was already quite improved from his presentation). Cont inue to explore housing options for the patient upon discharge. He shares that last evening he was able to speak with a lumber tripper and participate in confession. He found the experience extremely cathartic. He speaks hopefully in regards to finding a new place to live. He appears goal-oriented, looking forward to returning to work. He shares that he has had some difficulty sleeping the last few evenings. He is currently on 5 mg of Abilify BID. This will be increased to 7.5 mg. Additionally, given his improvement, his citalopram will be increased to 15 mg from 10 mg. Patient denies thoughts of self harm. He has been attending groups and has remained in the milieu. He contracts for safety. MANAGEMENT PLAN: Increase Celexa from 10 mg to 15 mg QD Increase Abilify from 5 mg to 7.5 mg BID TIME SPENT: 15 minutes. Vital Signs Vital Signs Date Time Temp Pulse Resp B/P (MAP) Pulse Ox O2 Delivery O2 Flow Rate FiO2 09/28/18 09:13 Room Air 09/28/18 06:45 97.9 64 14 116/62 (80) Current Medications Current Medications Acetaminophen (Tylenol Tab) 650 mg Q6HP PRN PO HEADACHE or DISCOMFORT Last administered on 09/25/18 08:43; Start 09/21/18 at 20:00 Al Hydrox/Mg Hydrox/Simethicone (Mylanta) 30 ml Q4HP PRN PO HEARTBURN/INDIGESTION; Start 09/21/18 at 20:00 Aripiprazole (AbiLIFY) 2.5 mg BID PO Last administered on 09/24/18 08:45; Start 09/22/18 at 21:00; Stop 09/24/18 at 13:31; Status DC Aripiprazole (AbiLIFY) 5 mg BID PO Last administered on 09/28/18 08:11; Start 09/24/18 at 21:00 Benzocaine (Anbesol Gel) 1 dose TID MT Last administered on 09/27/18 20:52; Start 09/25/18 at 09:00 Citalopram Hydrobromide (CeleXA) 10 mg DAILY PO Last administered on 09/28/18 08:11; Start 09/25/18 at 09:00 Clonazepam (KlonoPIN) 0.5 mg TID PRN PO ANXIETY/AGITATION Last administered on 09/28/18 08:11; Start 09/22/18 at 14:15 Home Med (Med Rec Complete!) ASDIRECTED XX ; Start 09/21/18 at 20:00; Stop 09/21/18 at 20:00; Status DC Ibuprofen (Advil) 400 mg Q6HP PRN PO PAIN; Start 09/25/18 at 12:15; Stop 09/25/18 at 15:51; Status DC Ibuprofen (Advil) 600 mg Q6HP PRN PO PAIN Last administered on 09/27/18at 19:25; Start 09/25/18 at 16:00 Lorazepam (Ativan) 1 mg Q4HP PRN PO ANXIETY/AGITATION Last administered on 09/22/18at 08:08; Start 09/21/18 at 20:00; Stop 09/22/18 at 14:18; Status DC Magnesium Hydroxide (Milk Of Magnesia) 30 ml DAILYPRN PRN PO CONSTIPATION; Start 09/21/18 at 20:00 Miscellaneous (Unresolved Clarification Entry) SEE LABEL COMMENTS DAILY XX ; Start 09/28/18 at 09:00 Nicotine (Nicoderm Cq 21mg) 1 patch DAILY TD Last administered on 09/28/18at 08:11; Start 09/22/18 at 09:00 Trazodone HCl (Desyrel) 50 mg QHSP PRN PO INSOMNIA; Start 09/21/18 at 20:00; Status Cancel Zolpidem Tartrate (Ambien) 10 mg QHSP PRN PO INSOMNIA Last administered on 09/27/18at 22:57; Start 09/21/18 at 22:45 Allergies Coded Allergies: Trazodone (Verified Adverse Reaction, Intermediate, PRIAPISM, 09/21/18) Years ago Pt experienced Erection, which lasted several hours. GME ATTESTATION GME ATTESTATION My faculty preceptor for this patient encounter was physically present during the encounter and was fully available. All aspects of the patient interview, examination, medical decision making process, and medical care plan development were reviewed and approved by the faculty preceptor. The faculty preceptor is aware and concurs with the plan as stated in the body of this note and will attest to such by his/her cosignature. BRAYDON ALFARO DO Sep 28, 2018 11:53 MARTY GAUTAM MD Sep 29, 2018 18:29
[2018-09-28] MEDS: IBUPROFEN 600 MG TAB PO PRN (16:08)
[2018-09-28 18:00] VITALS: BP 162/93
[2018-09-28] MEDS: NICOTINE POLACRILEX 2 MG GUM PO PRN ×2 (19:55→22:08)
[2018-09-28] MEDS: zolPIDEM TARTRATE 10MG TAB PO PRN (21:34)
[2018-09-29 06:35] VITALS: BP 108/70
[2018-09-29] MEDS: BENZOCAINE 10% 9GM TUBE (ANBESOL) MT SCH ×3 (08:14→21:00)
[2018-09-29] MEDS: PILL CRUSHER/CUTTER 1 EACH XX PRN (08:14)
[2018-09-29] MEDS ORDERED: CitaloPRAM (CeleXA) 10 MG TABLET PO SCH (09:00)
[2018-09-29] MEDS: NICOTINE POLACRILEX 2 MG GUM PO PRN ×5 (09:05→22:36)
[2018-09-29] MEDS: clonazePAM 0.5 MG TAB PO PRN ×2 (13:14→21:08)
[2018-09-29 18:00] VITALS: BP 136/80
--- NOTE | 2018-09-29 18:42 | MHIPNPDOC ---
[facility] Progress Note Progress Note DATE OF SERVICE: 09/29/18 HISTORY: As per ED report: "pt states, "I've been down lately and been thinking about killing myself." Pt reports a hx of Bi-polar Disorder, admits his symptoms have spiraled downward for the past week. States he's been feeling suicidal for 2 days with plan to jump off a bridge. Suicidal stressors include current living situation. He reports receiving a 3 day eviction notice on Thursday and states there is no way he can search for an apt in time. DSS is currently helping, but also identifies financial issues and being unemployed as other suicidal stressors. Pt states, "just need to be admitted to mental health because I want to kill myself." Pt moved here from [place] Jul, 2018 to be around family. States he wasdiagnosed with Bi-polar Disorder in [place] with one mental health admission 3 years ago. He's been seeking his PCP for medication, however still waiting to see a Psychiatrist. Pt continues to voice SI with plan to jump off a bridge." VITAL SIGNS: See below. NEW TEST RESULTS: See below CURRENT MEDICATIONS: See below. MENTAL STATUS EXAMINATION: General Appearance: well groomed, appears stated age, hospital scrubs/clothing Build: average Demeanor: pleasant, cooperative, reports depression, a little bit of anxiety, difficulty sleeping for two nights but shows signs of improvement Eye Contact: average Activity: Slow, seems to be calm but actually he is anxious Behavior: cooperative Speech: clear, spontaneous, reg/rate,rhythm,volume Mood: anxious Affect: appropriate, congruent, anxious Thought Process: logical/linear Thought Content (Delusions): grandiose (not at this time) Thought Content (Other): none reported Thought Content (Aggressive): none reported Perception (Hallucinations): auditory, visual Perception (Other): illusions Cognition (Impairment of): none reported Cognition(Intelligence Est.): average Oriented: Awake, Alert, Oriented times three Insight: fair Judgment: Poor Psychosis: Denies DIAGNOSIS 1. Bipolar disorder, mixed episode 2. JULIETA 3. Marihuana use disorder 4. R/O marihuana induced mood disorder ASSESSMENT: Edison scott complains today of difficulty falling asleep for two nights. TW had increased Abilify because I increased Celexa to 15 mgs. However, it might be that Abilify and Celexa could be activating him, since he has reported some manic symptoms a week prior to his admission. 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 Patient continues to report anxiety due his housing situation. Educational Diagnostician is trying to connect him to [facility] but this might take months to happen. MANAGEMENT PLAN: Decrease Celexa from 15 mg to 10 mg QD Decrease Abilify QHS from 7.5 to 5 mgs Continue Abilify 5 mgs PO QAM Discontinue Ambien 10 mgs PO QAM Start Ambien CR 12 mgs PO QHS. TIME SPENT: 15 minutes. Vital Signs Vital Signs Date Time Temp Pulse Resp B/P (MAP) Pulse Ox O2 Delivery O2 Flow Rate FiO2 09/29/18 08:33 Room Air 09/29/18 06:35 97.5 60 14 108/70 (83) Current Medications Current Medications Acetaminophen (Tylenol Tab) 650 mg Q6HP PRN PO HEADACHE or DISCOMFORT Last administered on 09/25/18at 08:43; Start 09/21/18 at 20:00 Al Hydrox/Mg Hydrox/Simethicone (Mylanta) 30 ml Q4HP PRN PO HEARTBURN/INDIGESTION; Start 09/21/18 at 20:00 Aripiprazole (AbiLIFY) 2.5 mg BID PO Last administered on 09/24/18at 08:45; Start 09/22/18 at 21:00; Stop 09/24/18 at 13:31; Status DC Aripiprazole (AbiLIFY) 5 mg BID PO Last administered on 09/28/18at 08:11; Start 09/24/18 at 21:00; Stop 09/28/18 at 12:30; Status DC Aripiprazole (AbiLIFY) 7.5 mg BID PO Last administered on 09/29/18at 08:13; Start 09/28/18 at 21:00; Stop 09/29/18 at 15:32; Status DC Aripiprazole (AbiLIFY) 15 mg QAM PO ; Start 09/30/18 at 09:00 Benzocaine (Anbesol Gel) 1 dose TID MT Last administered on 09/27/18at 20:52; Start 09/25/18 at 09:00 Citalopram Hydrobromide (CeleXA) 10 mg DAILY PO Last administered on 09/28/18at 08:11; Start 09/25/18 at 09:00; Stop 09/28/18 at 12:32; Status DC Citalopram Hydrobromide (CeleXA) 10 mg DAILY PO ; Start 09/30/18 at 09:00 Citalopram Hydrobromide (CeleXA) 15 mg DAILY PO Last administered on 09/29/18at 08:14; Start 09/29/18 at 09:00; Stop 09/29/18 at 15:29; Status DC Clonazepam (KlonoPIN) 0.5 mg TID PRN PO ANXIETY/AGITATION Last administered on 09/29/18at 13:14; Start 09/22/18 at 14:15 Home Med (Med Rec Complete!) ASDIRECTED XX ; Start 09/21/18 at 20:00; Stop 09/21/18 at 20:00; Status DC Ibuprofen (Advil) 400 mg Q6HP PRN PO PAIN; Start 09/25/18 at 12:15; Stop 09/25/18 at 15:51; Status DC Ibuprofen (Advil) 600 mg Q6HP PRN PO PAIN Last administered on 09/28/18at 16:08; Start 09/25/18 at 16:00 Lorazepam (Ativan) 1 mg Q4HP PRN PO ANXIETY/AGITATION Last administered on 09/22/18at 08:08; Start 09/21/18 at 20:00; Stop 09/22/18 at 14:18; Status DC Magnesium Hydroxide (Milk Of Magnesia) 30 ml DAILYPRN PRN PO CONSTIPATION; Start 09/21/18 at 20:00 Miscellaneous (Unresolved Clarification Entry) SEE LABEL COMMENTS DAILY XX ; Start 09/28/18 at 09:00; Stop 09/28/18 at 16:45; Status DC Nicotine (Nicoderm Cq 21mg) 1 patch DAILY TD Last administered on 09/28/18at 08:11; Start 09/22/18 at 09:00; Stop 09/28/18 at 16:51; Status DC Nicotine (Nicorette) 2 mg Q2HP PRN PO NICOTINE WITHDRAWAL Last administered on 09/29/18at 16:02; Start 09/28/18 at 17:00 Trazodone HCl (Desyrel) 50 mg QHSP PRN PO INSOMNIA; Start 09/21/18 at 20:00; Status Cancel Zolpidem Tartrate (Ambien Cr) 12.5 mg QHS PO ; Start 09/29/18 at 21:00 Zolpidem Tartrate (Ambien) 10 mg QHSP PRN PO INSOMNIA Last administered on 09/28/18at 21:34; Start 09/21/18 at 22:45; Stop 09/29/18 at 15:28; Status DC Allergies Coded Allergies: Trazodone (Verified Adverse Reaction, Intermediate, PRIAPISM, 09/21/18) Years ago Pt experienced Erection, which lasted several hours. MARTY GAUTAM MD Sep 29, 2018 18:42
[2018-09-29] MEDS: zolPIDEM CR 6.25MG TABLET (AMBIEN CR) PO SCH (21:09)
[2018-09-30] MEDS: clonazePAM 0.5 MG TAB PO PRN ×2 (06:21→20:40)
[2018-09-30] MEDS: NICOTINE POLACRILEX 2 MG GUM PO PRN ×4 (06:21→23:56)
[2018-09-30 06:56] VITALS: BP 116/62
[2018-09-30] MEDS: ARIPiprazole 15 MG TAB (AbiLIFY) PO SCH (08:16)
[2018-09-30] MEDS: PILL CRUSHER/CUTTER 1 EACH XX PRN (08:17)
[2018-09-30] MEDS: CitaloPRAM (CeleXA) 10 MG TABLET PO SCH (08:17)
[2018-09-30] MEDS: BENZOCAINE 10% 9GM TUBE (ANBESOL) MT SCH ×3 (08:17→20:37)
[2018-09-30] MEDS ORDERED: ARIPiprazole 15 MG TAB (AbiLIFY) PO SCH (09:00)
--- NOTE | 2018-09-30 15:09 | MHIPNPDOC ---
[facility] Progress Note Progress Note DATE OF SERVICE: 09/30/18 HISTORY: As per ED report: "pt states, "I've been down lately and been thinking about killing myself." Pt reports a hx of Bi-polar Disorder, admits his symptoms have spiraled downward for the past week. States he's been feeling suicidal for 2 days with plan to jump off a bridge. Suicidal stressors include current living situation. He reports receiving a 3 day eviction notice on Thursday and states there is no way he can search for an apt in time. DSS is currently helping, but also identifies financial issues and being unemployed as other suicidal stressors. Pt states, "just need to be admitted to mental health because I want to kill myself." Pt moved here from [place] Jul, 2018 to be around family. States he wasdiagnosed with Bi-polar Disorder in [place] with one mental health admission 3 years ago. He's been seeking his PCP for medication, however still waiting to see a Psychiatrist. Pt continues to voice SI with plan to jump off a bridge." VITAL SIGNS: See below. NEW TEST RESULTS: See below CURRENT MEDICATIONS: See below. MENTAL STATUS EXAMINATION: General Appearance: well groomed, appears stated age, hospital scrubs/clothing Build: average Demeanor: pleasant, cooperative, reports depression, anxious, but in a good way, because now he knows he is going to get a place to live Eye Contact: average Activity: Slow, calm but excited about leaving tomorrow and going to an apartment provided by [facility] Behavior: cooperative Speech: clear, spontaneous, reg/rate,rhythm,volume Mood: euthymic Affect: appropriate, congruent Thought Process: logical/linear Thought Content (Delusions): grandiose (not at this time) Thought Content (Other): none reported Thought Content (Aggressive): none reported Perception (Hallucinations): auditory, visual Perception (Other): illusions Cognition (Impairment of): none reported Cognition(Intelligence Est.): average Oriented: Awake, Alert, Oriented times three Insight: fair Judgment: Poor Psychosis: Denies DIAGNOSIS 1. Bipolar disorder, mixed episode 2. JULIETA 3. Marihuana use disorder 4. R/O marihuana induced mood disorder ASSESSMENT: Patient says he is OK with being discharged tomorrow, he knows someone who lives at the apartments he can go and live. He says he got a good night sleep last night last night and he wishes he could continue on the medication for sleep (Ambien CR 12.5 mgs). MANAGEMENT PLAN: Decrease Celexa from 15 mg to 10 mg QD Decrease Abilify QHS from 7.5 to 5 mgs Continue Abilify 5 mgs PO QAM Discontinue Ambien 10 mgs PO QAM Start Ambien CR 12 mgs PO QHS. TIME SPENT: 15 minutes. Vital Signs Vital Signs Date Time Temp Pulse Resp B/P (MAP) Pulse Ox O2 Delivery O2 Flow Rate FiO2 09/30/18 06:56 96.9 68 14 116/62 (80) 09/29/18 08:33 Room Air Current Medications Current Medications Acetaminophen (Tylenol Tab) 650 mg Q6HP PRN PO HEADACHE or DISCOMFORT Last administered on 09/25/18at 08:43; Start 09/21/18 at 20:00 Al Hydrox/Mg Hydrox/Simethicone (Mylanta) 30 ml Q4HP PRN PO HEARTBURN/INDIGESTION; Start 09/21/18 at 20:00 Aripiprazole (AbiLIFY) 2.5 mg BID PO Last administered on 09/24/18at 08:45; Start 09/22/18 at 21:00; Stop 09/24/18 at 13:31; Status DC Aripiprazole (AbiLIFY) 5 mg BID PO Last administered on 09/28/18at 08:11; Start 09/24/18 at 21:00; Stop 09/28/18 at 12:30; Status DC Aripiprazole (AbiLIFY) 5 mg QHS PO Last administered on 09/29/18at 21:08; Start 09/29/18 at 21:00 Aripiprazole (AbiLIFY) 7.5 mg BID PO Last administered on 09/29/18at 08:13; Start 09/28/18 at 21:00; Stop 09/29/18 at 15:32; Status DC Aripiprazole (AbiLIFY) 7.5 mg QAM PO Last administered on 09/30/18at 08:16; Start 09/30/18 at 09:00 Aripiprazole (AbiLIFY) 15 mg QAM PO ; Start 09/30/18 at 09:00; Stop 09/30/18 at 09:00; Status DC Benzocaine (Anbesol Gel) 1 dose TID MT Last administered on 09/27/18at 20:52; Start 09/25/18 at 09:00 Citalopram Hydrobromide (CeleXA) 10 mg DAILY PO Last administered on 09/28/18at 08:11; Start 09/25/18 at 09:00; Stop 09/28/18 at 12:32; Status DC Citalopram Hydrobromide (CeleXA) 10 mg DAILY PO Last administered on 09/30/18at 08:17; Start 09/30/18 at 09:00 Citalopram Hydrobromide (CeleXA) 15 mg DAILY PO Last administered on 09/29/18at 08:14; Start 09/29/18 at 09:00; Stop 09/29/18 at 15:29; Status DC Clonazepam (KlonoPIN) 0.5 mg TID PRN PO ANXIETY/AGITATION Last administered on 09/30/18at 06:21; Start 09/22/18 at 14:15 Home Med (Med Rec Complete!) ASDIRECTED XX ; Start 09/21/18 at 20:00; Stop 09/21/18 at 20:00; Status DC Ibuprofen (Advil) 400 mg Q6HP PRN PO PAIN; Start 09/25/18 at 12:15; Stop 09/25/18 at 15:51; Status DC Ibuprofen (Advil) 600 mg Q6HP PRN PO PAIN Last administered on 09/28/18at 16:08; Start 09/25/18 at 16:00 Lorazepam (Ativan) 1 mg Q4HP PRN PO ANXIETY/AGITATION Last administered on 09/22/18at 08:08; Start 09/21/18 at 20:00; Stop 09/22/18 at 14:18; Status DC Magnesium Hydroxide (Milk Of Magnesia) 30 ml DAILYPRN PRN PO CONSTIPATION; Start 09/21/18 at 20:00 Miscellaneous (Unresolved Clarification Entry) SEE LABEL COMMENTS DAILY XX ; Start 09/28/18 at 09:00; Stop 09/28/18 at 16:45; Status DC Nicotine (Nicoderm Cq 21mg) 1 patch DAILY TD Last administered on 09/28/18at 08:11; Start 09/22/18 at 09:00; Stop 09/28/18 at 16:51; Status DC Nicotine (Nicorette) 2 mg Q2HP PRN PO NICOTINE WITHDRAWAL Last administered on 09/30/18at 14:39; Start 09/28/18 at 17:00 Trazodone HCl (Desyrel) 50 mg QHSP PRN PO INSOMNIA; Start 09/21/18 at 20:00; Status Cancel Zolpidem Tartrate (Ambien Cr) 12.5 mg QHS PO Last administered on 09/29/18at 21:09; Start 09/29/18 at 21:00 Zolpidem Tartrate (Ambien) 10 mg QHSP PRN PO INSOMNIA Last administered on 09/28/18at 21:34; Start 09/21/18 at 22:45; Stop 09/29/18 at 15:28; Status DC Allergies Coded Allergies: Trazodone (Verified Adverse Reaction, Intermediate, PRIAPISM, 09/21/18) Years ago Pt experienced Erection, which lasted several hours. MARTY GAUTAM MD Sep 30, 2018 15:09
[2018-09-30] MEDS: IBUPROFEN 600 MG TAB PO PRN (16:04)
[2018-09-30 18:00] VITALS: BP 140/89
[2018-09-30] MEDS ORDERED: EXCEDRIN MIGRAINE TABLET PO ONE (18:00)
[2018-09-30] MEDS: zolPIDEM CR 6.25MG TABLET (AMBIEN CR) PO SCH (20:40)
[2018-10-01 07:14] VITALS: BP 138/77
[2018-10-01] MEDS: BENZOCAINE 10% 9GM TUBE (ANBESOL) MT SCH (08:26)
[2018-10-01] MEDS: ARIPiprazole 15 MG TAB (AbiLIFY) PO SCH (08:27)
[2018-10-01] MEDS: CitaloPRAM (CeleXA) 10 MG TABLET PO SCH (08:28)
[2018-10-01] MEDS: NICOTINE POLACRILEX 2 MG GUM PO PRN (08:29)
[2018-10-01] MEDS: PILL CRUSHER/CUTTER 1 EACH XX PRN (08:29)
[2018-10-01] MEDS ORDERED: IBUP-1022 PO (10:52)
[2018-10-01] MEDS ORDERED: CELE10TA PO (10:52)
[2018-10-01] MEDS ORDERED: AMBI6.25 PO (10:52)
[2018-10-01] MEDS ORDERED: ARIP15TAB PO (10:52)
[2018-10-01] MEDS ORDERED: ARIP5TA PO (10:52)
--- NOTE | 2018-10-01 19:55 | MHDSPDOC ---
[facility] Discharge Summary Discharge Summary DATE OF ADMISSION: Sep 21, 2018 at 19:52 DATE OF DISCHARGE: Oct 01, 2018 at 13:15 DISCHARGE DIAGNOSES: 1. Bipolar disorder, mixed episode 2. JULIETA 3. Marihuana use disorder 4. R/O marihuana induced mood disorder REASON FOR ADMISSION: "pt states, "I've been down lately and been thinking about killing myself." Pt reports a hx of Bi-polar Disorder, admits his symptoms have spiraled downward for the past week. States he's been feeling suicidal for 2 days with plan to jump off a bridge. Suicidal stressors include current living situation. He reports receiving a 3 day eviction notice on Thursday and states there is no way he can search for an apt in time. DSS is currently helping, but also identifies financial issues and being unemployed as other suicidal stressors. Pt states, "just need to be admitted to mental health because I want to kill myself." Pt moved here from [place] Jul, 2018 to be around family. States he wasdiagnosed with Bi-polar Disorder in [place] with one mental health admission 3 years ago. He's been seeking his PCP for medication, however still waiting to see a Psychiatrist. Pt continues to voice SI with plan to jump off a bridge." CONSULTANTS INVOLVED: None TREATMENT AND PROGRESS ON THE UNIT : Patient was pleasant and cooperative. He was never aggressive or violent to other people. He was anxious because he has had housing problems, where he said the place he was living was infested with cockroaches and this made him experience panic attacks. He said he had been shopping, spending money but mostly by eating outside because he was scared of being contaminated by the cockroaches. He was depressed because he didn't have a job that would allow him to live out of that place. Patient was compliant with medications, never reported medication side effects. He always reported having problems sleeping and as a matter of fact he said that he didn't like Remeron for sleep because he felt this medication had made him more anxious and more hyper and in many ways contributed to his symptoms before his admission. During the last two days of hospitalization he reported sleep problems once again and he was started on Ambien CR 12.5 mgs PO QHS because he stopped responding to Ambien 10 mgs PO QHS. since the patient had reported a h/o bipolar disorder, he was started on Abilify and finally got stabilized on 7.5 mgs PO QAM and 5 mgs PO QHS, Celexa 10 mgs PO daily and Ambien CR, 12.5 mgs PO QHS for insomnia HOSPITAL COURSE: As above DISCHARGE ASSESSMENT: Patient was not suicidal, not homicidal and not psychotic MENTAL STATUS EXAMINATION ON DISCHARGE: General Appearance: well groomed, appears stated age, hospital scrubs/clothing Build: average Demeanor: pleasant, cooperative, reports depression, anxious, but in a good way, because now he knows he is going to get a place to live Eye Contact: average Activity: Slow, calm but excited about leaving tomorrow and going to an apartment provided by DSS Behavior: cooperative Speech: clear, spontaneous, reg/rate,rhythm,volume Mood: euthymic Affect: appropriate, congruent Thought Process: logical/linear Thought Content (Delusions): grandiose (not at this time) Thought Content (Other): none reported Thought Content (Aggressive): none reported Perception (Hallucinations): auditory, visual Perception (Other): illusions Cognition (Impairment of): none reported Cognition(Intelligence Est.): average Oriented: Awake, Alert, Oriented times three Insight: fair Judgment: Poor Psychosis: Denies DIAGNOSIS 1. Bipolar disorder, mixed episode 2. JULIETA 3. Marihuana use disorder 4. R/O marihuana induced mood disorder MEDICATIONS ON DISCHARGE: Aripiprazole (Aripiprazole) 15 Mg Tab, 7.5 MG PO QAM for MOOD, #5 pATIENT SHOULD RECEIVE 1/2 TABLET Aripiprazole (Aripiprazole) 5 Mg Tab, 5 MG PO QHS for MOOD, #7 Citalopram Hydrobromide (Celexa) 10 Mg Tab, 10 MG PO DAILY for DEPRESSION, #7 Zolpidem Tartrate (Ambien Cr) 6.25 Mg Tab, 12.5 MG PO QHS for INSOMNIA, #7 Scheduled PRN Acetaminophen/Aspirin/Caffein (Excedrin Migraine 250-250-65 mg) 1 Tab Tab, 1 TAB PO Q12H PRN for MIGRAINE, (Reported) Alprazolam (Xanax) 0.5 Mg Tab, 0.5 MG PO TID PRN for ANXIETY, (Reported) Diphenhydramine HCl (Benadryl Allergy) 25 Mg Cap, 25 MG PO DAILY PRN for ALLERGY SYMPTOMS, (Reported) Ibuprofen (Ibuprofen) 600 Mg Tab, 600 MG PO Q6HP PRN for PAIN, #28 PLAN/FOLLOWUP ARRANGEMENTS: [facility] and will be leaving at emergency housing provided by [facility] The amount of time spent in the coordination of care for this patient was approximately 30 minutes. Vital Signs/I&Os Vital Signs Date Time Temp Pulse Resp B/P (MAP) Pulse Ox O2 Delivery O2 Flow Rate FiO2 10/01/18 07:14 97.9 70 16 138/77 (97) 09/29/18 08:33 Room Air Laboratory Data Microbiology Microbiology 09/29/18 MRSA Screen - Final, Complete Medications Scheduled Aripiprazole (Aripiprazole) 15 Mg Tab, 7.5 MG PO QAM for MOOD, #5 pATIENT SHOULD RECEIVE 1/2 TABLET Aripiprazole (Aripiprazole) 5 Mg Tab, 5 MG PO QHS for MOOD, #7 Citalopram Hydrobromide (Celexa) 10 Mg Tab, 10 MG PO DAILY for DEPRESSION, #7 Zolpidem Tartrate (Ambien Cr) 6.25 Mg Tab, 12.5 MG PO QHS for INSOMNIA, #7 Scheduled PRN Acetaminophen/Aspirin/Caffein (Excedrin Migraine 250-250-65 mg) 1 Tab Tab, 1 TAB PO Q12H PRN for MIGRAINE, (Reported) Alprazolam (Xanax) 0.5 Mg Tab, 0.5 MG PO TID PRN for ANXIETY, (Reported) Diphenhydramine HCl (Benadryl Allergy) 25 Mg Cap, 25 MG PO DAILY PRN for ALLERGY SYMPTOMS, (Reported) Ibuprofen (Ibuprofen) 600 Mg Tab, 600 MG PO Q6HP PRN for PAIN, #28 Allergies Coded Allergies: Trazodone (Verified Adverse Reaction, Intermediate, PRIAPISM, 09/21/18) Years ago Pt experienced Erection, which lasted several hours. MARTY GAUTAM MD Oct 01, 2018 19:53
== END 2018-10-01 13:15 | disposition home or self-care (01) | DRG 753 ==
LOC: M ED 16:33 → M ED INP 19:52 → M PSY 20:33
PROVIDERS: ADMIT Psychiatry & Neurology Psychiatry; ATTEND Psychiatry & Neurology Psychiatry
DX: F31.60 Bipolar disorder, current episode mixed, unspecified (principal); F41.1 Generalized anxiety disorder; F17.200 Nicotine dependence, unspecified, uncomplicated; F12.188 Cannabis abuse with other cannabis-induced disorder; G43.909 Migraine, unspecified, not intractable, without status migrainosus; Z79.899 Other long term (current) drug therapy; Z56.0 Unemployment, unspecified

== ENCOUNTER 2018-10-09 11:22 | Emergency (ER) | payer OTHER ==
[~2018-10-09] VITALS: Ht 182.9 cm; Wt 81.8 kg
[~2018-10-09 11:22] MED LIST changes: +AMBI6.25 PO; +ARIP15TAB PO; +ARIP5TA PO; +BENA25CA4 PO; +CELE10TA PO; +EXCETAB80 PO; +IBUP-1022 PO
[2018-10-09] MEDS ORDERED: XANA0.5T PO (13:39)
[2018-10-09 14:33] VITALS: BP 132/64
== END 2018-10-09 14:34 | disposition home or self-care (01) ==
LOC: EDBD 11:22 → M ED 11:22
DX: F41.0 Panic disorder [episodic paroxysmal anxiety] (principal); F32.9 Major depressive disorder, single episode, unspecified; F17.200 Nicotine dependence, unspecified, uncomplicated

== ENCOUNTER 2018-10-18 13:18 | Emergency (ER) | payer OTHER ==
[~2018-10-18] VITALS: Ht 182.9 cm; Wt 79.5 kg
[2018-10-18] MEDS ORDERED: TETRACAINE 0.5% OPHTH SOLN 4ML OS ONE (15:15)
[2018-10-18] MEDS ORDERED: FLUORESCEIN OPHTH 1 MG STRIP OS ONE (15:15)
[2018-10-18 16:15] VITALS: BP 132/66
== END 2018-10-18 16:15 | disposition home or self-care (01) ==
LOC: M ED 13:18
DX: H53.8 Other visual disturbances (principal); H43.392 Other vitreous opacities, left eye; F31.9 Bipolar disorder, unspecified; F17.200 Nicotine dependence, unspecified, uncomplicated; Z88.8 Allergy status to other drugs, medicaments and biological substances; Z79.899 Other long term (current) drug therapy

== ENCOUNTER 2018-10-20 14:27 | Emergency (ER) | payer OTHER ==
[~2018-10-20] VITALS: Ht 182.9 cm; Wt 79.5 kg
[2018-10-20 15:27] LABS: HEMATOCRIT 48.7 % (42.0-52.0); HEMOGLOBIN 16.3 g/dl (13.5-17.5); MEAN CORPUSCULAR HGB CONC 33.5 g/dl (32.0-36.5); MEAN CORPUSCULAR VOLUME 95.7 fl (80.0-96.0); PLATELET COUNT, AUTOMATED 265 10^3/uL (150-450); RED BLOOD COUNT 5.09 10^6/uL (4.30-6.10); WHITE BLOOD COUNT 8.8 10^3/uL (4.0-10.0)
[2018-10-20 16:05] LABS: ACETAMINOPHEN LEVEL < 2.0 UG/ML (10.0-30.0); ALBUMIN 4.3 GM/DL (3.2-5.2); ALT/SGPT 18 U/L (12-78); BILIRUBIN,DIRECT 0.2 MG/DL (0.0-0.2); BILIRUBIN,TOTAL 0.9 MG/DL (0.2-1.0); BLOOD UREA NITROGEN 14 MG/DL (7-18); CARBON DIOXIDE LEVEL 24 MEQ/L (21-32); CHLORIDE LEVEL 108 MEQ/L (98-107); CREATININE FOR GFR 0.93 MG/DL (0.70-1.30); ETHYL ALCOHOL (ETHANOL) < 0.003 % (0.000-0.010); GLOMERULAR FILTRATION RATE > 60.0 (>60); GLUCOSE, FASTING 68 MG/DL (70-100); SALICYLATE LEVEL 1.9 MG/DL (5.0-30.0); SODIUM LEVEL 142 MEQ/L (136-145); TOTAL PROTEIN 7.3 GM/DL (6.4-8.2)
[2018-10-20 17:43] LABS: AMPHETAMINES LEVEL URINE NEGATIVE (NEGATIVE); BARBITURATES URINE NEGATIVE (NEGATIVE); BENZODIAZEPINES URINE NEGATIVE (NEGATIVE); CANNABINOIDS URINE POSITIVE (NEGATIVE); COCAINE METABOLITE URINE NEGATIVE (NEGATIVE); METHADONE URINE NEGATIVE (NEGATIVE); OPIATES URINE NEGATIVE (NEGATIVE); PHENCYCLIDINE URINE NEGATIVE (NEGATIVE)
--- NOTE | 2018-10-21 08:12 | ECGEPIP ---
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
[2018-10-21] MEDS ORDERED: ALPRAZolam 0.5 MG TAB PO ONE (09:00)
[2018-10-21] MEDS ORDERED: CitaloPRAM (CeleXA) 10 MG TABLET PO ONE (09:00)
[2018-10-21 12:41] VITALS: BP 128/74
== END 2018-10-21 12:42 ==
LOC: M ED 14:27
DX: R45.851 Suicidal ideations (principal); F31.9 Bipolar disorder, unspecified; F33.9 Major depressive disorder, recurrent, unspecified; F41.9 Anxiety disorder, unspecified; G43.909 Migraine, unspecified, not intractable, without status migrainosus; Z79.899 Other long term (current) drug therapy; Z88.8 Allergy status to other drugs, medicaments and biological substances; F17.210 Nicotine dependence, cigarettes, uncomplicated
CPT/HCPCS: 36415; 80048; 80076; 80307; 84443; 85027; 93005; 99285; G0480

== ENCOUNTER 2019-07-02 23:52 | Emergency (ER) | payer OTHER ==
[~2019-07-02] VITALS: Ht 182.9 cm; Wt 77.3 kg
[~2019-07-02 23:52] MED LIST changes: -ARIP15TAB PO; +ARIP1TAB10 PO; +ARIP1TAB6 PO; -ARIP5TA PO
[2019-07-03] MEDS ORDERED: CITA20TA6
[2019-07-03] MEDS ORDERED: GABA-843
[2019-07-03] MEDS ORDERED: ESZO1TAB5
[2019-07-03] MEDS ORDERED: CLON1TAB8
[2019-07-03] MEDS ORDERED: QUET1TAB8
[2019-07-03] MEDS ORDERED: AMOX875T
[2019-07-03] MEDS ORDERED: LIDOCAINE 2% MDV 20 ML VIAL SC ONE (01:30)
[2019-07-03 02:02] VITALS: BP 121/69
== END 2019-07-03 02:22 | disposition home or self-care (01) ==
LOC: M ED 23:52
DX: S01.311A Laceration without foreign body of right ear, initial encounter (principal); Y04.0XXA Assault by unarmed brawl or fight, initial encounter; Y92.89 Other specified places as the place of occurrence of the external cause; G43.909 Migraine, unspecified, not intractable, without status migrainosus; K21.9 Gastro-esophageal reflux disease without esophagitis; F31.9 Bipolar disorder, unspecified; F41.9 Anxiety disorder, unspecified; Z88.8 Allergy status to other drugs, medicaments and biological substances; Z79.899 Other long term (current) drug therapy; Z79.2 Long term (current) use of antibiotics